=== PATIENT | female | born 1940 | race Asian ===

== ENCOUNTER 2017-03-23 00:56 | Inpatient (IN) | payer MEDICARE, BC ==
[~2017-03-23] VITALS: Ht 160 cm; Wt 51.3 kg
[2017-03-23] VITALS (11 sets, daily range): BP systolic 158–226; BP diastolic 74–105; PULSE 80–101; RESP 16–20; TEMP 95.5–98.7; O2SAT 96–100
[~2017-03-23 00:56] MED LIST: ALEN100T2 PO; AMLO5TAB2 PO; ASPI-110 PO; DICL1GEL7 TOPICAL; DULO1CAP2 PO; GLIP5TAB8 PO; LOSA50TA PO; MELO-1 PO; METF1000 PO; ONETTES4; PANT40TA3 PO; PERI8.6T PO; POLY17S PO; SIMV40TA PO
[2017-03-23] MEDS ORDERED: oxyCODONE/ACETAMINOPHEN 5 MG/325 MG TAB PO ONE (01:45)
[2017-03-23] MEDS ORDERED: SODIUM CHLORIDE 0.9% FLUSH 10 ML FLUSH IV FLUSH PRN ×2 (01:45→04:45)
--- NOTE | 2017-03-23 01:48 | PD ---
HPI Chief Complaint: Pain: Acute or Chronic Time Seen by Provider: 01:33 Travel History International Travel<30 days: No Contact w/Intl Traveler<30days: No Traveled to known affect area: No History of Present Illness HPI The patient speaks Thai and [place] interpreter deaf #[id number] as well as the patient's were used for interpretation for history and physical exam. This is a 76-year-old female with history of hypertension, hyperlipidemia, diabetes, who is here for evaluation of diffuse body pain. The patient describes the pain as achy and is 8 out of 10, constant, worse with movements. Apparently the patient has had this pain for years and is being seen by our residents in our clinic for this pain. I reviewed some of their charts and they have performed tests such as ESR and CRP which are normal. She is supposed to have a follow-up appointment this morning at 9:30 AM, however because she has not been able to sleep over the last 3 nights because of the pain, she decided to present to the emergency department for further evaluation. Apparently the patient was seen in their clinic about a week ago and was prescribed meloxicam, however this causes the patient to become nauseous and had an upset stomach, so she has discontinued this medication. She has been compliant with all of her other medications. PFSH Past Medical History High Cholesterol: Yes Diabetes: Yes Patient Takes Glucophage: Yes Diminished Hearing: No Hypertension: Yes Tetanus Vaccination: Unknown Influenza Vaccination: No Past Surgical History Surgical History: No Previous Surgery Social History Alcohol Use: No Tobacco Use: No Substance Use: No Allergies-Medications (Allergen,Severity, Reaction): Coded Allergies: diclofenac (Verified Allergy, Unknown, 03/23/17) Reported Meds & Prescriptions Reported Meds & Active Scripts Active Alendronate (Alendronate Sodium) 10 Mg Tab 10 Mg PO DAILY Simvastatin 40 Mg Tab 40 Mg PO HS Meloxicam 15 Mg Tab 15 Mg PO DAILY Polyethylene Glycol 3350 Powder (Polyethylene Glycol) 17 Gm Pow 17 Gm PO DAILY Losartan (Losartan Potassium) 50 Mg Tab 50 Mg PO DAILY Amlodipine (Amlodipine Besylate) 5 Mg Tab 5 Mg PO DAILY Cherrie-Colace (Sennosides-Docusate Sodium) 8.6-50 Mg Tab 1 Tab PO BID PRN Metformin (Metformin HCl) 1,000 Mg Tab 1,000 Mg PO BIDPC With meals Pantoprazole (Pantoprazole Sodium) 40 Mg Tab 40 Mg PO DAILY Reported Onetouch Ultra Test Strips (Blood Glucose Test Strips) 1 Lucretia Lucretia 1 Strip .ROUTE DIRECTED Aspirin 81 (Aspirin) 81 Mg Tabdr 81 Mg PO DAILY Review of Systems Except as stated in HPI: all other systems reviewed are Neg Physical Exam Narrative GENERAL: Well-developed, well-nourished, awake, alert, comfortable, no apparent distress. SKIN: Focused skin assessment warm/dry. HEAD: Atraumatic. Normocephalic. EYES: Pupils equal and round. No scleral icterus. No injection or drainage. ENT: No nasal bleeding or discharge. Mucous membranes pink and moist. NECK: Trachea midline. No JVD. No nuchal rigidity. CARDIOVASCULAR: Regular rate and rhythm. Distal pulses brisk and equal bilaterally. RESPIRATORY: No accessory muscle use. Clear to auscultation. Breath sounds equal bilaterally. GASTROINTESTINAL: Abdomen soft, non-tender, nondistended. MUSCULOSKELETAL: No obvious deformities. No clubbing. No cyanosis. No edema. NEUROLOGICAL: Awake and alert. No obvious cranial nerve deficits. Motor grossly within normal limits. Normal speech. PSYCHIATRIC: Appropriate mood and affect; insight and judgment normal. Data Data Last Documented VS Vital Signs Date Time Temp Pulse Resp B/P (MAP) Pulse Ox O2 Delivery O2 Flow Rate FiO2 03/23/17 03:10 87 18 177/90 (119) 99 Room Air 03/23/17 00:57 97.6 Orders Orders Complete Blood Count With Diff (03/23/17 01:33) Comprehensive Metabolic Panel (03/23/17 01:33) Iv Access Insert/Monitor (03/23/17 01:33) Ecg Monitoring (03/23/17 01:33) Oximetry (03/23/17 01:33) Sodium Chloride 0.9% Flush (Ns Flush) (03/23/17 01:45) Electrocardiogram (03/23/17 01:33) Ct Brain W/O Iv Contrast(Rout) (03/23/17 ) Oxycodone-Acetamin 5-325 Mg (Percocet (03/23/17 01:45) Ondansetron Inj (Zofran Inj) (03/23/17 02:15) Sodium Chlor 0.9% 1000 Ml Inj (Ns 1000 M (03/23/17 02:33) Labs Laboratory Tests Test 03/23/17 02:00 White Blood Count 7.6 TH/MM3 Red Blood Count 4.69 MIL/MM3 Hemoglobin 13.8 GM/DL Hematocrit 41.3 % Mean Corpuscular Volume 88.2 FL Mean Corpuscular Hemoglobin 29.5 PG Mean Corpuscular Hemoglobin Concent 33.4 % Red Cell Distribution Width 12.6 % Platelet Count 241 TH/MM3 Mean Platelet Volume 7.8 FL Neutrophils (%) (Auto) 75.5 % Lymphocytes (%) (Auto) 16.8 % Monocytes (%) (Auto) 6.9 % Eosinophils (%) (Auto) 0.5 % Basophils (%) (Auto) 0.3 % Neutrophils # (Auto) 5.7 TH/MM3 Lymphocytes # (Auto) 1.3 TH/MM3 Monocytes # (Auto) 0.5 TH/MM3 Eosinophils # (Auto) 0.0 TH/MM3 Basophils # (Auto) 0.0 TH/MM3 CBC Comment DIFF FINAL Differential Comment Blood Urea Nitrogen 9 MG/DL Creatinine 0.64 MG/DL Random Glucose 209 MG/DL Total Protein 8.3 GM/DL Albumin 4.1 GM/DL Calcium Level 9.2 MG/DL Alkaline Phosphatase 60 U/L Aspartate Amino Transf (AST/SGOT) 22 U/L Alanine Aminotransferase (ALT/SGPT) 27 U/L Total Bilirubin 0.5 MG/DL Sodium Level 116 MEQ/L Potassium Level 4.0 MEQ/L Chloride Level 80 MEQ/L Carbon Dioxide Level 25.0 MEQ/L Anion Gap 11 MEQ/L Estimat Glomerular Filtration Rate 91 ML/MIN [facility] Medical Decision Making Medical Screen Exam Complete: Yes Emergency Medical Condition: Yes Medical Record Reviewed: Yes Differential Diagnosis Chronic pain, osteoarthritis, PMR, meningitis/encephalitis/SAH unlikely, dissection unlikely Narrative Course Initial vital signs show heart rate 97, blood pressure 226/105, pulse ox 96% on room air, oral temp of 97.6F. Repeat vital signs show blood pressure 177/90 without any intervention. CBC is unremarkable. CMP is remarkable for sodium 116, random glucose 209. CT head shows no acute intracranial disease. Patient was started on normal saline at 70 cc per hour and will be admitted for further treatment and evaluation of hypokalemia, chronic pain. Case discussed with biomedical specialist. The patient will be admitted to their service. Diagnosis Primary Impression: Hypokalemia Additional Impression: Chronic pain Qualified Codes: G89.29 - Other chronic pain Admitting Information Admitting Physician Requests: Admit Juan Malagon MD Mar 23, 2017 01:48
[2017-03-23 02:10] LABS: AUTOMATED NEUTROPHIL # 5.7 TH/MM3 (1.8-7.7); BASOPHIL % 0.3 % (0.0-2.0); EOSINOPHIL % 0.5 % (0.0-4.0); HEMATOCRIT 41.3 % (35.0-46.0); HEMO FLAGS DIFF FINAL; LYMPH % 16.8 % (9.0-44.0); LYMPHOCYTE # 1.3 TH/MM3 (1.0-4.8); MEAN CELL VOLUME 88.2 FL (80.0-100.0); MEAN CORPUSCULAR HEMOGLOBIN 29.5 PG (27.0-34.0); MEAN CORPUSCULAR HGB CONC 33.4 % (32.0-36.0); MONO % 6.9 % (0.0-8.0); NEUT % 75.5 % (16.0-70.0); PLATELET COUNT 241 TH/MM3 (150-450); RED BLOOD COUNT 4.69 MIL/MM3 (4.00-5.30); RED CELL DISTRIBUTION WIDTH 12.6 % (11.6-17.2); WHITE BLOOD COUNT 7.6 TH/MM3 (4.0-11.0)
[2017-03-23] MEDS ORDERED: ONDANSETRON HCL 4 MG/2 ML VIAL IV PUSH ONE (02:15)
[2017-03-23 02:30] LABS: ALKALINE PHOSPHATASE 60 U/L (45-117); ALT (GPT) 27 U/L (10-53); ANION GAP 11 MEQ/L (5-15); AST (GOT) 22 U/L (15-37); BLOOD UREA NITROGEN 9 MG/DL (7-18); CHLORIDE 80 MEQ/L (98-107); GLOMERULAR FILTRATION RATE 91 ML/MIN (>89); TOTAL BILIRUBIN ADULT 0.5 MG/DL (0.2-1.0)
[2017-03-23 02:33] LABS: SODIUM (NA) 116 MEQ/L (136-145)
[2017-03-23] MEDS ORDERED: SODIUM CHLOR 0.9% 1000 ML INJ 1,000 ML IV SCH (02:33)
--- NOTE | 2017-03-23 03:06 | RADRPT ---
EXAM DATE/TIME: 03/23/2017 02:34 [facility] COMPARISON: No previous studies available for comparison. INDICATIONS : Cephalgia. RADIATION DOSE: 31.74 CTDIvol (mGy) MEDICAL HISTORY : Hypertension. Diabetes mellitus type 2. SURGICAL HISTORY : None. ENCOUNTER: Initial ACUITY: 1 day PAIN SCALE: 6/10 LOCATION: cranial TECHNIQUE: Multiple contiguous axial images were obtained of the head. Using automated exposure control and adj ustment of the mA and/or kV according to patient size, radiation dose was kept as low as reasonably a chievable to obtain optimal diagnostic quality images. DICOM format image data is available electro nically for review and comparison. FINDINGS: CEREBRUM: The ventricles are normal for age. No evidence of midline shift, mass lesion, hemorrhage or acute in farction. No extra-axial fluid collections are seen. POSTERIOR FOSSA: The cerebellum and brainstem are intact. The 4th ventricle is midline. The cerebellopontine angle i s unremarkable. EXTRACRANIAL: The visualized portion of the orbits is intact. SKULL: The calvaria is intact. No evidence of skull fracture. CONCLUSION: No acute intracranial disease. Rancho Pierre MD on March 23, 2017 at 3:04 Board Certified Radiologist. This report was verified electronically.
--- NOTE | 2017-03-23 04:09 | HHI.HP ---
HPI Service Family Medicine Primary Care Physician Unknown Admission Diagnosis hyponatremia, chronic pain Diagnoses: Chief Complaint: pain International Travel<30 Days: No Contact w/Intl Traveler<30days: No History of Present Illness Ms. Richter is a 76 y/o [place] female with history of diabetes, hypertension , hyponatremia, chronic pain who presents due to pain. She initially presented to the ED due to chronic pain that has worsened lately. She has had the pain for years and has been evaluated in the [facility]. She recently had workup for possible inflammatory condition, which was negative, including ESR, RF, and CRP. Pt was found to have osteoporosis. She also states that she had some nausea and vomiting after starting Mobic, which was prescribed. Also having difficulty sleeping lately as well. Complains of headache, bilateral pain. Has had off and on for a week. No photophobia or auras. The , who provides some of the history, states she does have occasional confusion lately, but is oriented today. No history of seizures. Has a history of hyponatremia in the past, they are unsure of the etiology. Denies drinking lots of water. No syncope. No ataxia. Pt is fully independent at baseline, but worsening fatigue lately has hindered her activities. (Sampson Geiger MD, R2) Review of Systems Constitutional: COMPLAINS OF: Chills, DENIES: Fever Eyes: DENIES: Blurred vision Ears, nose, mouth, throat: DENIES: Throat pain, Hoarseness, Running Nose Respiratory: DENIES: Cough, Shortness of breath Cardiovascular: DENIES: Chest pain, Palpitations, Syncope, Lower Extremity Edema Gastrointestinal: COMPLAINS OF: Nausea, Vomiting, DENIES: Abdominal pain, Black stools, Bloody stools, Constipation, Diarrhea Musculoskeletal: COMPLAINS OF: Joint pain, Muscle aches, Stiffness, Back pain, Neck pain Integumentary: DENIES: Abnormal pigmentation, Rash Neurologic: COMPLAINS OF: Headache, DENIES: Seizures, Speech Problems, Tremor ( Sampson Geiger MD, R2) Past Family Social History Past Medical History T2DM HTN Hyponatremia Depression Dyslipidemia Diverticulosis Vitamin D deficiency Past Surgical History Cataract OU in 2009 Endoscopy-July 2014 Reported Medications Reported Meds & Active Scripts Active Alendronate (Alendronate Sodium) 10 Mg Tab 10 Mg PO DAILY Simvastatin 40 Mg Tab 40 Mg PO HS Meloxicam 15 Mg Tab 15 Mg PO DAILY Polyethylene Glycol 3350 Powder (Polyethylene Glycol) 17 Gm Pow 17 Gm PO DAILY Losartan (Losartan Potassium) 50 Mg Tab 50 Mg PO DAILY Amlodipine (Amlodipine Besylate) 5 Mg Tab 5 Mg PO DAILY Cherrie-Colace (Sennosides-Docusate Sodium) 8.6-50 Mg Tab 1 Tab PO BID PRN Metformin (Metformin HCl) 1,000 Mg Tab 1,000 Mg PO BIDPC With meals Pantoprazole (Pantoprazole Sodium) 40 Mg Tab 40 Mg PO DAILY Reported Onetouch Ultra Test Strips (Blood Glucose Test Strips) 1 Lucretia Lucretia 1 Strip .ROUTE DIRECTED Aspirin 81 (Aspirin) 81 Mg Tabdr 81 Mg PO DAILY (aSmpson Geiger MD, R2) Allergies: Coded Allergies: diclofenac (Verified Allergy, Unknown, 03/23/17) Active Ordered Medications Active Medications Ondansetron HCl (Zofran Inj) 4 mg ONCE ONCE IV PUSH Last administered on 02:14; Admin Dose 4 MG; Start 03/23/17 at 02:15; Stop 03/23/17 at 02:16; Status DC Oxycodone/ Acetaminophen (Percocet 5-325 Mg) 1 tab ONCE ONCE PO Last administered on 03/23/17 01:43; Admin Dose 1 TAB; Start 03/23/17 at 01:45; Stop 03/23/17 at 01:46; Status DC Sodium Chloride 1,000 ml @ 70 mls/hr [id number] IV Last administered on 02:35; Admin Dose 70 MLS/HR; Start 03/23/17 at 02:33; Stop 03/23/17 at 16 :50 Sodium Chloride (NS Flush) 2 ml UNSCH PRN IV FLUSH Last administered on 02:14; Admin Dose 2 ML; Start 03/23/17 at 01:45 Family History Unknown Social History She is retired. Lives with her in [facility]. Recently moved from [facility]. Never smoked. Denies EtOH or illicit drug use. Fluent in Chadian. Nepali is limited. (Sampson Geiger MD, R2) Physical Exam Vital Signs Vital Signs Date Time Temp Pulse Resp B/P (MAP) Pulse Ox O2 Delivery O2 Flow Rate FiO2 10/23/17 03:10 87 18 177/90 (119) 99 Room Air 03/23/17 02:23 16 99 Room Air 03/23/17 01:33 16 03/23/17 00:57 97.6 97 16 226/105 (145) 96 Room Air Physical Exam GENERAL: This is a well-nourished, well-developed patient, in no apparent distress. SKIN: No rashes, ecchymoses or lesions. Cool and dry. HEAD: Atraumatic. Normocephalic. EYES: Pupils equal round and reactive. Extraocular motions intact. No scleral icterus. No injection or drainage. ENT: Throat without erythema, tonsillar hypertrophy or exudate. Uvula midline. Airway patent. NECK: Trachea midline. No JVD or lymphadenopathy. CARDIOVASCULAR: Regular rate and rhythm without murmurs, gallops, or rubs. RESPIRATORY: Clear to auscultation. Breath sounds equal bilaterally. No wheezes , rales, or rhonchi. GASTROINTESTINAL: Abdomen soft, non-tender, nondistended. No hepato-splenomegaly , or palpable masses. No guarding. MUSCULOSKELETAL: Extremities without clubbing, cyanosis, or edema. Tender to palpation of shoulders and knees. NEUROLOGICAL: Awake and alert. Cranial nerves II through XII intact. Motor and sensory grossly within normal limits. Five out of 5 muscle strength in all muscle groups. Normal speech. Laboratory Laboratory Tests Test 03/23/17 02:00 White Blood Count 7.6 Red Blood Count 4.69 Hemoglobin 13.8 Hematocrit 41.3 Mean Corpuscular Volume 88.2 Mean Corpuscular Hemoglobin 29.5 Mean Corpuscular Hemoglobin Concent 33.4 Red Cell Distribution Width 12.6 Platelet Count 241 Mean Platelet Volume 7.8 Neutrophils (%) (Auto) 75.5 Lymphocytes (%) (Auto) 16.8 Monocytes (%) (Auto) 6.9 Eosinophils (%) (Auto) 0.5 Basophils (%) (Auto) 0.3 Neutrophils # (Auto) 5.7 Lymphocytes # (Auto) 1.3 Monocytes # (Auto) 0.5 Eosinophils # (Auto) 0.0 Basophils # (Auto) 0.0 CBC Comment DIFF FINAL Differential Comment Blood Urea Nitrogen 9 Creatinine 0.64 Random Glucose 209 Total Protein 8.3 Albumin 4.1 Calcium Level 9.2 Alkaline Phosphatase 60 Aspartate Amino Transf (AST/SGOT) 22 Alanine Aminotransferase (ALT/SGPT) 27 Total Bilirubin 0.5 Sodium Level 116 Potassium Level 4.0 Chloride Level 80 Carbon Dioxide Level 25.0 Anion Gap 11 Estimat Glomerular Filtration Rate 91 (Sampson Geiger MD, R2) Result Diagram: 03/23/17 0200 03/23/17 0200 Imaging Last Impressions Head CT 03/23/17 0000 Signed Impressions: Service Date/Time: Thursday, March 23, 2017 02:34 - CONCLUSION: No acute intracranial disease. Rancho Pierre MD (Sampson Geiger MD, R2) Caprini VTE Risk Assessment Caprini VTE Risk Assessment: Mod/High Risk (score >= 2) Caprini Risk Assessment Model Point Value = 1 Point Value = 2 Point Value = 3 Point Value = 5 Age 41-60 Minor surgery BMI > 25 kg/m2 Swollen legs Varicose veins or History of unexplained or recurrent spontaneous Oral contraceptives or hormone replacement Sepsis (< 1 month) Serious lung disease, including pneumonia (< 1 month) Abnormal pulmonary function Acute myocardial infarction Congestive heart failure (< 1 month) History of inflammatory bowel disease Medical patient at bed rest Age 61-74 Arthroscopic surgery Major open surgery (> 45 min) Laparoscopic surgery (> 45 min) Malignancy Confined to bed (> 72 hours) Immobilizing plaster cast Central venous access Age >= 75 History of VTE Family history of VTE Factor V Leiden Prothrombin [id number] Lupus anticoagulant Anticardiolipin antibodies Elevated serum homocysteine Heparin-induced thrombocytopenia Other congenital or acquired thrombophilia Stroke (< 1 month) Elective arthroplasty Hip, pelvis, or leg fracture Acute spinal cord injury (< 1 month) Prophylaxis Regimen Total Risk Factor Score Risk Level Prophylaxis Regimen 0-1 Low Early ambulation 2 Moderate Order ONE of the following: *Sequential Compression Device (SCD) *Heparin 5000 units SQ BID 3-4 Higher Order ONE of the following medications: *Heparin 5000 units SQ TID *Enoxaparin/Lovenox 40 mg SQ daily (WT < 150 kg, CrCl > 30 mL/min) *Enoxaparin/Lovenox 30 mg SQ daily (WT < 150 kg, CrCl > 10-29 mL/min) *Enoxaparin/Lovenox 30 mg SQ BID (WT < 150 kg, CrCl > 30 mL/min) AND/OR *Sequential Compression Device (SCD) 5 or more Highest Order ONE of the following medications: *Heparin 5000 units SQ TID (Preferred with Epidurals) *Enoxaparin/Lovenox 40 mg SQ daily (WT < 150 kg, CrCl > 30 mL/min) *Enoxaparin/Lovenox 30 mg SQ daily (WT < 150 kg, CrCl > 10-29 mL/min) *Enoxaparin/Lovenox 30 mg SQ BID (WT < 150 kg, CrCl > 30 mL/min) AND *Sequential Compression Device (SCD) (Sampson Geiger MD, R2) Assessment and Plan Assessment and Plan 76 y/o female with history of diabetes, hypertension, chronic pain, hyponatremia presents for chronic pain/fatigue found to have hyponatremia. We' ll admit for management of electrolyte imbalance. Code Status Full Discussed Condition With Dr. Pastrana (Sampson Geiger MD, R2) Attending Attestation THIS CASE WAS DISCUSSED WITH THE RESIDENT PHYSICIANS. I HAVE REVIEWED THE RECORD AND AGREE WITH THE ABOVE NOTE AND PLAN OF CARE WAS DISCUSSED. I HAVE AUTHORIZED THE ORDER FOR ADMISSION TO AN IN-PATIENT STATUS. (Abbie Denson MD) Problem List: (1) Hyponatremia ICD Codes: E87.1 - Hypo-osmolality and hyponatremia Status: Acute Plan: Sodium of 116 on admission. Clinically with mild symptoms (headache, nausea). No signs of confusion, seizures, respiratory depression. Has history of hyponatremia, so may be a more chronic picture. Serum Osm: 247; clinically, pt is euvolemic with stable vital signs, mucous membranes, no edema; however, may be slightly hypovolemic due to GI losses Goal is to raise sodium by 4-6meq/24h to reduce risk for osmotic demyelination -Serial BMPs q3H -Fluid restriction, may attempt trial of IV fluids if no improvement -UA, including urinary sodium and osmolality -Monitor for neurological signs or worsening clinically (2) HTN (hypertension) ICD Codes: I10 - Essential (primary) hypertension Status: Chronic Plan: 226/105 on arrival, trended down to 177/90 without any intervention -Continue home meds: amlodipine, losartan -Clonidine PRN -Regular vital signs (3) Diabetes ICD Codes: E11.9 - Type 2 diabetes mellitus without complications Status: Chronic Plan: Hold home Metformin while inpatient -Low dose sliding scale novolog insulin -Regular accuchecks (4) Chronic pain ICD Codes: G89.29 - Other chronic pain Status: Chronic Plan: Pt with chronic joint pain. Found to have osteoporosis, but no other etiology. Pt with GI upset after taking NSAIDs Inflammatory workup initiated, negative -Continue alendronate -IV tylenol for pain -Physical therapy -Further workup as outpatient (5) FEN Status: Acute Plan: Fluids: Restrict Electrolytes: hyponatremia, see above Nutrition: diabetic diet DVT ppx: Heparin (Sampson Geiger MD, R2) Physician Certification 2 Midnight Certification Type: Admission for Inpatient Services Order for Inpatient Services The services are ordered in accordance with Medicare regulations or non- Medicare payer requirements, as applicable. In the case of services not specified as inpatient-only, they are appropriately provided as inpatient services in accordance with the 2-midnight benchmark. Estimated LOS (days): 2 days is the estimated time the patient will need to remain in the hospital, assuming treatment plan goals are met and no additional complications. Post-Hospital Plan: Home (Sampson Geiger MD, R2) 2 Midnight Certification Type: Admission for Inpatient Services Post-Hospital Plan: Home (Abbie Denson MD) Problem Qualifiers (1) HTN (hypertension): Qualified Codes: I10 - Essential (primary) hypertension (2) Diabetes: Qualified Codes: E11.9 - Type 2 diabetes mellitus without complications (3) Chronic pain: Qualified Codes: G89.29 - Other chronic pain Sampson Geiger MD, R2 Mar 23, 2017 04:09 Abbie Denson MD Mar 23, 2017 15:44
[2017-03-23] MEDS ORDERED: MAGNESIUM HYDROXIDE SUSP 30 ML CUP PO PRN (04:45)
[2017-03-23] MEDS ORDERED: GLUCAGON 1 MG/ML VIAL OTHER PRN (04:45)
[2017-03-23] MEDS ORDERED: DEXTROSE 50% IN WATER 50 ML VIAL(D50) IV PUSH PRN (04:45)
[2017-03-23] MEDS ORDERED: LACTULOSE SYRUP 20 GM/30 ML CUP PO PRN (04:45)
[2017-03-23] MEDS ORDERED: NALOXONE HCL 0.4 MG/ML AMP IV PUSH PRN (04:45)
[2017-03-23] MEDS ORDERED: cloNIDine HCL 0.1 MG TAB PO PRN (04:45)
[2017-03-23] MEDS ORDERED: ACETAMINOPHEN 325 MG TAB PO PRN (04:45)
[2017-03-23] MEDS ORDERED: BISACODYL 10 MG SUPP RECTAL PRN (04:45)
[2017-03-23] MEDS ORDERED: SENNOSIDES 8.6 MG TAB PO PRN (04:45)
[2017-03-23 05:51] LABS: BICARBONATE 25.6 MEQ/L (21.0-32.0)
[2017-03-23 05:52] LABS: POTASSIUM 4.7 MEQ/L (3.5-5.1)
[2017-03-23] MEDS: HEPARIN SODIUM - SQ 10,000 UNITS/ML VIAL SQ SCH ×2 (07:00→17:38)
[2017-03-23] MEDS ORDERED: ACETAMINOPHEN 1000 MG/100 ML 100 ML IV PRN (07:00)
[2017-03-23] MEDS ORDERED: ALENDRONATE SODIUM 10 MG TAB PO SCH (09:00)
[2017-03-23] MEDS: PANTOPRAZOLE SOD 40 MG DELAYED RELEASE TAB PO SCH (09:01)
[2017-03-23] MEDS: ASPIRIN EC 81 MG TABEC PO SCH (09:01)
[2017-03-23] MEDS: amLODIPine BESYLATE 5 MG TAB PO SCH (09:01)
[2017-03-23] MEDS: LOSARTAN 50 MG TAB PO SCH (09:01)
[2017-03-23] MEDS: DOCUSATE SODIUM 50 MG/SENNA 8.6 MG TAB PO SCH ×2 (09:01→22:11)
[2017-03-23] MEDS: INSULIN ASPART SUPPLEMENTAL SCALE SQ SCH ×4 (09:02→22:28)
[2017-03-23] MEDS: SODIUM CHLORIDE 0.9% FLUSH 10 ML FLUSH IV FLUSH SCH ×2 (09:03→19:49)
--- NOTE | 2017-03-23 09:26 | HHI.FPPN ---
Subjective Remarks No acute events overnight. [employer] computer used this morning to provide [place]oan translation for the patient. Patient endorses fatigue and a mild headache. She states she has felt fatigued over the past 3 days and this worsened overnight which prompted her to be evaluated in the ED. She denies confusion, tremors, or being anxious. She states she normally only drinks about 2 bottles of water a day which is confirmed by her . The bottles are about 8 ounces each. She reports good UOP, no excessive urination, dysuria, or hematuria. She denies having a history of renal conditions. She and her family states she has had hyponatremia in the past. She was seen in clinic this past and started on duloxetine 30 mg po daily and family has questions as to if this has caused some of her symptoms. (Jerod Gudino MD R2) Objective Vitals Vital Signs Date Time Temp Pulse Resp B/P (MAP) Pulse Ox O2 Delivery O2 Flow Rate FiO2 03/23/17 08:00 98 03/23/17 06:00 97 03/23/17 05:10 21 03/23/17 04:58 03/23/17 03:10 87 18 177/90 (119) 99 Room Air 03/23/17 02:23 16 99 Room Air 03/23/17 01:33 16 03/23/17 00:57 97.6 97 16 226/105 (145) 96 Room Air I/O 03/22/17 03/22/17 03/22/17 03/23/17 03/23/17 03/23/17 07:00 15:00 23:00 07:00 15:00 23:00 Intake Total 100 ml Output Total 100 ml Balance 0 ml Intake IV Total 100 ml Output Emesis 100 ml (Jerod Gudino MD R2) Result Diagram: 03/23/17 0200 03/23/17 0515 Objective Remarks GENERAL: Awake and alert but does appear fatigued, pleasant, appears stated age SKIN: No rashes, ecchymoses or lesions. Cool and dry. Normal skin turgor. HEAD: Atraumatic. Normocephalic. EYES: EOMI. No injection or drainage. ENT: Moist mucous membranes. Uvula midline. Airway patent. NECK: Supple. Trachea midline. No JVD. CARDIOVASCULAR: Regular rate and rhythm without murmurs, gallops, or rubs. Cap refill about 2 seconds. RESPIRATORY: Clear to auscultation. Breath sounds equal bilaterally. No wheezes , rales, or rhonchi. ABDOMEN: Abdomen soft, non-tender, nondistended. No hepato-splenomegaly, or palpable masses. No guarding. EXTREMITIES: No lower extremity edema. NEUROLOGICAL: Awake and alert. Cranial nerves grossly intact. Motor and sensory grossly within normal limits. Normal speech (speaks in Samoan). (Jerod Gudino MD R2) A/P Assessment and Plan 76 y/o female with history of diabetes, hypertension, chronic pain, and hyponatremia admitted after presenting with chronic pain/fatigue and found to have hyponatremia of 116 on admission. Discharge Planning Anticipate discharge home once electrolyte imbalances are resolved (Jerod Gudino MD R2) Attending Attestation Patient seen and examined. Case reviewed and discussed with the resident team. Agree with plan of care as discussed with me and documented in the resident note. (Abbie Denson MD) Problem List: (1) Hyponatremia ICD Codes: E87.1 - Hypo-osmolality and hyponatremia Status: Acute Plan: Sodium of 116 on admission. Clinically with mild symptoms (headache, nausea, fatigue). No signs of confusion, seizures, respiratory depression. Has history of hyponatremia, so may be a more of a chronic picture. Serum Osm on admission: 247 Clinically, pt remains euvolemic with stable vital signs, moist mucous membranes , normal skin turgor, 2 second cap refill, no edema; however, may be slightly hypovolemic due to GI losses Goal is to raise sodium by 4-6meq/24h to reduce risk for osmotic demyelination and no more than 8meq in a 24 hour period -Continue serial BMPs q3h, consider more frequent evaluation q2h pending changes in Na level -Continue fluid restriction for now, if no improvement in Na with fluid restriction then patient likely not having psychogenic polydipsia and will transition to IVF with NS -UA, including urinary sodium and osmolality. Called laboratory and lab still has not received urine specimen. RN notified to send urine specimen down to lab to run these studies -Monitor for neurological signs or worsening clinically (2) HTN (hypertension) ICD Codes: I10 - Essential (primary) hypertension Status: Chronic Plan: 226/105 on arrival, trended down to 177/90 without any intervention -Continue home meds: amlodipine, losartan -Clonidine PRN -Monitor vitals q4h (3) Diabetes ICD Codes: E11.9 - Type 2 diabetes mellitus without complications Status: Chronic Plan: Hold home Metformin while inpatient -Low dose sliding scale novolog insulin -Regular accuchecks (4) Chronic pain ICD Codes: G89.29 - Other chronic pain Status: Chronic Plan: Pt with chronic joint pain. Found to have osteoporosis, but no other etiology. Pt with GI upset after taking NSAIDs Inflammatory workup initiated, negative -Continue alendronate -PO Tylenol prn pain -Physical therapy (5) FEN Status: Acute Plan: Fluids: Currently on fluid restriction as above, considering starting IVF with NS pending repeat Na level Electrolytes: hyponatremia, plan as above Nutrition: diabetic diet DVT ppx: Heparin 5,000 units sq q12h GI ppx: Protonix 40 mg po daily (Jerod Gudino MD R2) Problem Qualifiers (1) HTN (hypertension): Qualified Codes: I10 - Essential (primary) hypertension (2) Diabetes: Qualified Codes: E11.9 - Type 2 diabetes mellitus without complications (3) Chronic pain: Qualified Codes: G89.29 - Other chronic pain Jerod Gudino MD R2 Mar 23, 2017 09:26 Abbie Denson MD Mar 23, 2017 15:48
[2017-03-23 09:44] LABS: BICARBONATE 23.1 MEQ/L (21.0-32.0)
[2017-03-23 09:51] LABS: POTASSIUM 4.7 MEQ/L (3.5-5.1)
--- NOTE | 2017-03-23 10:40 | EKG ---
Date Performed: 03/23/2017 Time Performed: 02:19:56 PTAGE: 76 years EKG: Sinus rhythm NORMAL ECG NO PREVIOUS TRACING DOCTOR: David Becerra Interpretating Date/Time 03/23/2017 10:37:44
[2017-03-23 14:27] LABS: POTASSIUM 3.9 MEQ/L (3.5-5.1)
[2017-03-23 16:15] LABS: BICARBONATE 27.9 MEQ/L (21.0-32.0); POTASSIUM 3.9 MEQ/L (3.5-5.1)
[2017-03-23 17:05] LABS: BACTERIA, URINE RARE /hpf; BLOOD, URINE SMALL (NEG); COMMENT (UR) CULT NOT INDICATED; CULTURE IF INDICATED CULT NOT INDICATED; GLUCOSE,URINE 1000 mg/dL (NEG); KETONE, URINE NEG (NEG); NITRITE,URINE NEG (NEG); SQUAMOUS EPITHELIAL CELL URINE <1 /hpf (0-5); URINE COLOR LIGHT-YELLOW (YELLW/STRAW)
[2017-03-23 19:27] LABS: BICARBONATE 27.2 MEQ/L (21.0-32.0); POTASSIUM 3.6 MEQ/L (3.5-5.1)
[2017-03-23] MEDS: ONDANSETRON HCL 4 MG/2 ML VIAL IVP PRN (19:49)
[2017-03-23] MEDS ORDERED: PRAVASTATIN SOD 80 MG TAB PO SCH (21:00)
[2017-03-23 23:06] LABS: BICARBONATE 26.5 MEQ/L (21.0-32.0); POTASSIUM 4.2 MEQ/L (3.5-5.1)
[2017-03-24] VITALS: BP 136/79; PULSE 78; RESP 19; TEMP 97.9; O2SAT 98
[2017-03-24] MEDS ORDERED: SODIUM CHLORIDE 1 GRAM TAB PO ONE
[2017-03-24] MEDS: ACETAMINOPHEN 325 MG TAB PO PRN ×2 (01:34→21:59)
[2017-03-24] MEDS: ONDANSETRON HCL 4 MG/2 ML VIAL IVP PRN (03:05)
[2017-03-24 03:16] LABS: BICARBONATE 28.6 MEQ/L (21.0-32.0); POTASSIUM 3.5 MEQ/L (3.5-5.1)
[2017-03-24 04:00] VITALS: BP 142/82; PULSE 72; RESP 18; TEMP 97.4; O2SAT 95
[2017-03-24] MEDS: HEPARIN SODIUM - SQ 10,000 UNITS/ML VIAL SQ SCH ×2 (05:25→18:02)
[2017-03-24 08:00] VITALS: BP 108/55; PULSE 85; RESP 18; TEMP 98.8; O2SAT 97
[2017-03-24] MEDS: INSULIN ASPART SUPPLEMENTAL SCALE SQ SCH ×4 (08:00→22:01)
[2017-03-24] MEDS: amLODIPine BESYLATE 5 MG TAB PO SCH (09:30)
[2017-03-24] MEDS: ASPIRIN EC 81 MG TABEC PO SCH (09:30)
[2017-03-24] MEDS: PANTOPRAZOLE SOD 40 MG DELAYED RELEASE TAB PO SCH (09:30)
[2017-03-24] MEDS: LOSARTAN 50 MG TAB PO SCH (09:31)
[2017-03-24] MEDS: DOCUSATE SODIUM 50 MG/SENNA 8.6 MG TAB PO SCH ×2 (09:31→21:00)
[2017-03-24] MEDS: SODIUM CHLORIDE 0.9% FLUSH 10 ML FLUSH IV FLUSH SCH ×2 (09:33→22:01)
[2017-03-24 10:33] LABS: BICARBONATE 23.7 MEQ/L (21.0-32.0); FREE T4 1.6 NG/DL (0.76-1.46); POTASSIUM 3.6 MEQ/L (3.5-5.1)
[2017-03-24] MEDS ORDERED: DOCUSATE SODIUM 50 MG/SENNA 8.6 MG TAB PO SCH (11:45)
[2017-03-24 12:00] VITALS: BP 139/71; PULSE 71; RESP 18; TEMP 97.6; O2SAT 99
--- NOTE | 2017-03-24 15:22 | HHI.FPPN ---
Subjective Remarks Patient states that she is feeling much better than when she came in. States that she is able to eat and is walking around. Endorses continued headache and neck and shoulder pain/aches. Vitals within normal limits overnight. Intake/ output of 1.0/1.4. Received salt tablet x1. Sodium improved from 114 last night to 121 today. (Yuli Oliva MD R1) Objective Vitals Vital Signs Date Time Temp Pulse Resp B/P (MAP) Pulse Ox O2 Delivery O2 Flow Rate FiO2 03/24/17 12:00 97.6 71 18 139/71 (93) 99 03/24/17 08:00 98.8 85 18 108/55 (72) 97 03/24/17 07:50 Room Air 03/24/17 04:00 97.4 72 18 142/82 (102) 95 03/24/17 00:00 Room Air 03/24/17 00:00 97.9 78 19 136/79 (98) 98 03/23/17 20:20 83 03/23/17 19:55 158/74 (102) 03/23/17 19:37 98.2 80 18 172/89 (116) 100 03/23/17 19:37 Room Air 03/23/17 16:05 98.7 93 20 198/91 (126) 98 I/O 03/23/17 03/23/17 03/23/17 03/24/17 03/24/17 03/24/17 07:00 15:00 23:00 07:00 15:00 23:00 Intake Total 100 ml 240 ml 785 ml Output Total 100 ml 1350 ml Balance 0 ml 240 ml -565 ml Intake Oral 240 ml 785 ml IV Total 100 ml Output Urine Total 1350 ml Emesis 100 ml # Voids 2 # Bowel Movements 1 0 (Yuli Oliva MD R1) Result Diagram: 03/23/17 0200 03/24/17 0513 Objective Remarks GENERAL: Awake and alert but does appear fatigued, pleasant, appears stated age SKIN: Cool and dry. Normal skin turgor. HEAD: Atraumatic. Normocephalic. EYES: EOMI. No injection or drainage. ENT: Moist mucous membranes. Uvula midline. Airway patent. NECK: Supple. Trachea midline. No JVD. CARDIOVASCULAR: Regular rate and rhythm without murmurs, gallops, or rubs. RESPIRATORY: Clear to auscultation. Breath sounds equal bilaterally. No wheezes , rales, or rhonchi. ABDOMEN: Abdomen soft, non-tender, nondistended. No hepato-splenomegaly, or palpable masses. No guarding. EXTREMITIES: No lower extremity edema. NEUROLOGICAL: Awake and alert. Cranial nerves grossly intact. Motor and sensory grossly within normal limits. Normal speech (speaks in Tristanian). (Yuli Oliva MD R1) A/P Assessment and Plan 76 y/o female with history of diabetes, hypertension, chronic pain, and hyponatremia admitted after presenting with chronic pain/fatigue and found to have hyponatremia of 116 on admission. Work-up significant for SIADH likely secondary to medication use (duloxetine). Patient has been placed on fluid restriction to < 800 cc/day. Sodium levels have improved to 121 in the last 15 hours. Discharge Planning Anticipate discharge home once electrolyte imbalances are resolved (Yuli Oliva MD R1) Attending Attestation Patient seen and examined. Case reviewed and discussed with the resident team. Agree with plan of care as discussed with me and documented in the resident note. (Abbie Denson MD) Problem List: (1) Hyponatremia ICD Codes: E87.1 - Hypo-osmolality and hyponatremia Status: Acute Plan: Sodium of 116 on admission. Clinically with mild symptoms (headache, nausea, fatigue). No signs of confusion, seizures, respiratory depression. Has history of hyponatremia (this is the 3rd episode in 2 years triggered by medication), so may be a more of a chronic picture. Serum Osm on admission: 247 (L) Urine osm: 528 (H) Urine sodium : 54 Clinically, pt remains euvolemic with stable vital signs, moist mucous membranes , normal skin turgor, 2 second cap refill, no edema Thyroid disease and adrenal insufficiency etiology ruled out w/ normal TSH and AM cortisol Meets criteria for SIADH. D/C'd duloxetine, as this medication can contribute Goal is to raise sodium by 4-6meq/24h to reduce risk for osmotic demyelination and no more than 8meq in a 24 hour period -Continue to monitor with serial BMPs q6h, consider more frequent evaluation q3h pending changes in Na level -Continue fluid restriction for now -Monitor for neurological signs or worsening clinically (2) HTN (hypertension) ICD Codes: I10 - Essential (primary) hypertension Status: Chronic Plan: 226/105 on arrival, trended down to 177/90 without any intervention -Continue home meds: amlodipine, losartan -Clonidine PRN -Monitor vitals q4h (3) Diabetes ICD Codes: E11.9 - Type 2 diabetes mellitus without complications Status: Chronic Plan: Hold home Metformin while inpatient -Low dose sliding scale novolog insulin -Regular accuchecks (4) Chronic pain ICD Codes: G89.29 - Other chronic pain Status: Chronic Plan: Pt with chronic joint pain. Found to have osteoporosis, but no other etiology. Pt with GI upset after taking NSAIDs Inflammatory workup initiated, negative -Continue alendronate -PO Tylenol prn pain -Physical therapy (5) FEN Status: Acute Plan: Fluids: Currently on fluid restriction as above, considering starting IVF with NS pending repeat Na level Electrolytes: hyponatremia, plan as above Nutrition: diabetic diet DVT ppx: Heparin 5,000 units sq q12h GI ppx: Protonix 40 mg po daily (Yuli Oliva MD R1) Problem Qualifiers (1) HTN (hypertension): Qualified Codes: I10 - Essential (primary) hypertension (2) Diabetes: Qualified Codes: E11.9 - Type 2 diabetes mellitus without complications (3) Chronic pain: Qualified Codes: G89.29 - Other chronic pain Yuli Oliva MD R1 Mar 24, 2017 15:22 Abbie Denson MD Mar 25, 2017 08:39
[2017-03-24 16:00] VITALS: BP 133/74; PULSE 78; RESP 18; TEMP 98.3; O2SAT 99
[2017-03-24 20:00] VITALS: BP 134/67; PULSE 76; PULSE 81; RESP 20; TEMP 98.3; O2SAT 96
[2017-03-24 21:36] LABS: BICARBONATE 25.2 MEQ/L (21.0-32.0); POTASSIUM 3.7 MEQ/L (3.5-5.1)
[2017-03-25] VITALS (7 sets, daily range): BP systolic 94–159; BP diastolic 57–75; PULSE 70–85; RESP 20; TEMP 98.1–98.3; O2SAT 97–99
[2017-03-25 04:37] LABS: BICARBONATE 26.3 MEQ/L (21.0-32.0); POTASSIUM 3.7 MEQ/L (3.5-5.1)
[2017-03-25] MEDS: HEPARIN SODIUM - SQ 10,000 UNITS/ML VIAL SQ SCH ×2 (05:49→17:36)
[2017-03-25] MEDS: SODIUM CHLORIDE 0.9% FLUSH 10 ML FLUSH IV FLUSH SCH ×2 (07:25→21:38)
[2017-03-25] MEDS: DOCUSATE SODIUM 50 MG/SENNA 8.6 MG TAB PO SCH ×2 (08:44→21:00)
[2017-03-25] MEDS: ASPIRIN EC 81 MG TABEC PO SCH (08:45)
[2017-03-25] MEDS: PANTOPRAZOLE SOD 40 MG DELAYED RELEASE TAB PO SCH (08:45)
[2017-03-25] MEDS: amLODIPine BESYLATE 5 MG TAB PO SCH ×2 (08:45→08:48)
[2017-03-25] MEDS: LOSARTAN 50 MG TAB PO SCH ×2 (08:45→08:48)
[2017-03-25] MEDS: INSULIN ASPART SUPPLEMENTAL SCALE SQ SCH ×4 (08:46→21:39)
[2017-03-25 08:57] LABS: ALKALINE PHOSPHATASE 49 U/L (45-117); ALT (GPT) 24 U/L (10-53); ANION GAP 7 MEQ/L (5-15); AST (GOT) 21 U/L (15-37); BICARBONATE 25.1 MEQ/L (21.0-32.0); BLOOD UREA NITROGEN 18 MG/DL (7-18); CHLORIDE 96 MEQ/L (98-107); GLOMERULAR FILTRATION RATE 78 ML/MIN (>89); POTASSIUM 3.7 MEQ/L (3.5-5.1); SODIUM (NA) 128 MEQ/L (136-145); TOTAL BILIRUBIN ADULT 0.5 MG/DL (0.2-1.0)
[2017-03-25] MEDS: ACETAMINOPHEN 325 MG TAB PO PRN ×2 (09:35→21:40)
--- NOTE | 2017-03-25 09:59 | HHI.FPPN ---
Subjective Remarks No acute events overnight. [employer] computer used for [place] translation this morning. Patient states overall her fatigue and nausea have improved. She has complaints that her pain is still present. She states this pain has been present for about the past 4-5 years and is unchanged in nature. She denies any weakness, numbness, or tingling of any extremity. She also has complaints of thinking she may have yellow conjunctiva. She also has questions as to the cause of her hyponatremia. It was explained at length the potential causes as well as treatment and need for follow up as an outpatient once she is medically stable for discharge. (Jerod Gudino MD R2) Objective Vitals Vital Signs Date Time Temp Pulse Resp B/P (MAP) Pulse Ox O2 Delivery O2 Flow Rate FiO2 03/25/17 08:00 98.1 84 20 94/57 (69) 98 03/25/17 00:00 98.1 70 20 122/60 (80) 97 03/24/17 20:00 98.3 76 20 134/67 (89) 96 03/24/17 20:00 81 03/24/17 20:00 Room Air 03/24/17 16:00 98.3 78 18 133/74 (93) 99 03/24/17 12:00 97.6 71 18 139/71 (93) 99 I/O 03/24/17 03/24/17 03/24/17 03/25/17 03/25/17 03/25/17 07:00 15:00 23:00 07:00 15:00 23:00 Intake Total 785 ml 420 ml 240 ml Output Total 1350 ml 1200 ml Balance -565 ml -780 ml 240 ml Intake Oral 785 ml 420 ml 240 ml Output Urine Total 1350 ml 1200 ml # Voids 3 # Bowel Movements 0 1 (Jerod Gudino MD R2) Result Diagram: 03/23/17 0200 03/25/17 0652 Objective Remarks GENERAL: Awake and alert, pleasant, appears stated age, sitting in chair, appears less fatigued than prior examination SKIN: Cool and dry. Normal skin turgor. HEAD: Atraumatic. Normocephalic. EYES: EOMI. No injection or drainage. ENT: Moist mucous membranes. Uvula midline. Airway patent. NECK: Supple. Trachea midline. No JVD. CARDIOVASCULAR: Regular rate and rhythm without murmurs, gallops, or rubs. Cap refill < 2 seconds. Peripheral pulses 2+. RESPIRATORY: Clear to auscultation. Breath sounds equal bilaterally. No wheezes , rales, or rhonchi. ABDOMEN: Abdomen soft, non-tender, nondistended. No hepato-splenomegaly, or palpable masses. No guarding. EXTREMITIES: No lower extremity edema. NEUROLOGICAL: Awake and alert. Cranial nerves grossly intact. Motor and sensory grossly within normal limits. Normal speech (speaks in [place]). (Jerod Gudino MD R2) A/P Assessment and Plan 76 y/o female with a history of diabetes, hypertension, chronic pain, and hyponatremia admitted after presenting with chronic pain/fatigue and found to have hyponatremia of 116 on admission. Work-up significant for SIADH likely secondary to medication use (duloxetine). Discharge Planning Anticipate discharge home following resolution of electrolyte imbalances (Jerod Gudino MD R2) Attending Attestation Patient seen and examined. Case reviewed and discussed with the resident team. Agree with plan of care as discussed with me and documented in the resident note. (Abbie Denson MD) Problem List: (1) Hyponatremia ICD Codes: E87.1 - Hypo-osmolality and hyponatremia Status: Acute Plan: Sodium of 116 on admission. Clinically with mild symptoms (headache, nausea, fatigue). No signs of confusion, seizures, respiratory depression. Has history of hyponatremia (this is the 3rd episode in 2 years triggered by medication), so may be a more of a chronic picture. Serum Osm on admission: 247 (L) Urine osm: 528 (H) Urine sodium: 54 Clinically, pt remains euvolemic with stable vital signs, moist mucous membranes , normal skin turgor, 2 second cap refill, no edema Thyroid disease and adrenal insufficiency etiology ruled out w/ normal TSH and AM cortisol Meets criteria for SIADH. Discontinued duloxetine, as this medication can contribute/cause SIADH Goal is to raise sodium by 4-6meq/24h to reduce risk for osmotic demyelination and no more than 8meq in a 24 hour period -Continue to monitor BMPs -Continue fluid restriction for now of < 800 cc/day -Monitor for neurological signs or worsening clinically (2) HTN (hypertension) ICD Codes: I10 - Essential (primary) hypertension Status: Chronic Plan: -Continue home meds: amlodipine, losartan -Clonidine PRN -Monitor vitals q4h (3) Diabetes ICD Codes: E11.9 - Type 2 diabetes mellitus without complications Status: Chronic Plan: Hold home Metformin while inpatient -Low dose sliding scale novolog insulin -Regular accuchecks (4) Chronic pain ICD Codes: G89.29 - Other chronic pain Status: Chronic Plan: Pt with chronic joint pain. Found to have osteoporosis, but no other etiology. Pt with GI upset after taking NSAIDs Inflammatory workup initiated, negative - Continue alendronate - PO Tylenol prn pain - Physical therapy - Avoid NSAIDs for now (5) FEN Status: Acute Plan: Fluids: Currently on fluid restriction as above; fluid restriction of 800 cc/day Electrolytes: hyponatremia, plan as above; otherwise WNL Nutrition: diabetic diet DVT ppx: Heparin 5,000 units sq q12h GI ppx: Protonix 40 mg po daily (Jerod Gudino MD R2) Problem Qualifiers (1) HTN (hypertension): Qualified Codes: I10 - Essential (primary) hypertension (2) Diabetes: Qualified Codes: E11.9 - Type 2 diabetes mellitus without complications (3) Chronic pain: Qualified Codes: G89.29 - Other chronic pain Jerod Gudino MD R2 Mar 25, 2017 09:59 Abbie Denson MD Mar 26, 2017 09:21
--- NOTE | 2017-03-25 17:23 | HHI.DCPOC ---
Discharge Care Plan Diagnosis: (1) SIADH (syndrome of inappropriate ADH production) (2) Hyponatremia Goals to Promote Your Health * To prevent worsening of your condition and complications, restrict your water intake to 800ml , take your medications as directed, follow up with your doctor * To maintain your health at the optimal level, perform aerobic exercise at least 30 minutes a day, eat a mediterranean diet, follow up with your doctors Directions to Meet Your Goals Take your medications as prescribed Follow your dietary instruction Follow activity as directed Keep your appointments as scheduled Take your immunizations and boosters as scheduled If your symptoms worsen call your PCP, if no PCP go to Urgent Care Center or Emergency Room Smoking is Dangerous to Your Health. Avoid second hand smoke Call the 24-hour hour crisis hotline for domestic abuse at Yuli Oliva MD R1 Mar 25, 2017 17:23
[2017-03-26 00:10] VITALS: BP 155/75; PULSE 76; RESP 16; TEMP 97.8; O2SAT 98
[2017-03-26 04:00] VITALS: BP 156/82; PULSE 73; RESP 20; TEMP 97.7; O2SAT 99
[2017-03-26] MEDS: HEPARIN SODIUM - SQ 10,000 UNITS/ML VIAL SQ SCH (05:23)
[2017-03-26 06:21] LABS: BICARBONATE 25.6 MEQ/L (21.0-32.0); POTASSIUM 4.1 MEQ/L (3.5-5.1)
[2017-03-26 08:00] VITALS: BP 159/70; PULSE 88; RESP 20; TEMP 98.8; O2SAT 96
[2017-03-26] MEDS: LOSARTAN 50 MG TAB PO SCH (08:43)
[2017-03-26] MEDS: amLODIPine BESYLATE 5 MG TAB PO SCH (08:43)
[2017-03-26] MEDS: SODIUM CHLORIDE 0.9% FLUSH 10 ML FLUSH IV FLUSH SCH (08:43)
[2017-03-26] MEDS: DOCUSATE SODIUM 50 MG/SENNA 8.6 MG TAB PO SCH (08:43)
[2017-03-26] MEDS: ASPIRIN EC 81 MG TABEC PO SCH (08:43)
[2017-03-26] MEDS: INSULIN ASPART SUPPLEMENTAL SCALE SQ SCH (08:43)
[2017-03-26] MEDS: PANTOPRAZOLE SOD 40 MG DELAYED RELEASE TAB PO SCH (08:43)
[2017-03-26 08:51] VITALS: PULSE 89
--- NOTE | 2017-03-26 08:59 | HHI.FPPN ---
Subjective Remarks Patient states she was able to sleep and is eating, drinking, and ambulating ok. No acute complaints. BP was 150s/80s overnight. Objective Vitals Vital Signs Date Time Temp Pulse Resp B/P (MAP) Pulse Ox O2 Delivery O2 Flow Rate FiO2 03/26/17 04:00 97.7 73 20 156/82 (106) 99 03/26/17 04:00 97.7 73 20 156/82 (106) 99 03/26/17 00:10 97.8 76 16 155/75 (101) 98 Automatic Cuff 03/25/17 20:00 Room Air 03/25/17 20:00 84 03/25/17 20:00 98.3 85 20 159/75 (103) 99 03/25/17 15:21 98.3 85 20 139/63 (88) 98 03/25/17 12:13 Room Air 21 03/25/17 11:56 98.3 75 20 110/58 (75) 98 03/25/17 10:43 99 21 I/O 03/25/17 03/25/17 03/25/17 03/26/17 03/26/17 03/26/17 07:00 15:00 23:00 07:00 15:00 23:00 Intake Total 240 ml 240 ml 200 ml Output Total 400 ml Balance 240 ml 240 ml -200 ml Intake Oral 240 ml 240 ml 200 ml Output Urine Total 400 ml # Voids 3 3 Result Diagram: 03/23/17 0200 03/26/17 0527 Objective Remarks GENERAL: Awake and alert, pleasant, appears stated age, sitting in chair, appears less fatigued than prior examination SKIN: Cool and dry. Normal skin turgor. HEAD: Atraumatic. Normocephalic. EYES: EOMI. No injection or drainage. ENT: Moist mucous membranes. Uvula midline. Airway patent. NECK: Supple. Trachea midline. CARDIOVASCULAR: Regular rate and rhythm without murmurs, gallops, or rubs. RESPIRATORY: Clear to auscultation. Breath sounds equal bilaterally. No wheezes , rales, or rhonchi. ABDOMEN: Abdomen nondistended. EXTREMITIES: No lower extremity edema. NEUROLOGICAL: Awake and alert. Cranial nerves grossly intact. Motor and sensory grossly within normal limits. Normal speech (speaks in [place]iny[place]). A/P Assessment and Plan 76 y/o female with a history of diabetes, hypertension, chronic pain, and hyponatremia admitted after presenting with chronic pain/fatigue and found to have hyponatremia of 116 on admission. Work-up significant for SIADH likely secondary to medication use (duloxetine). Discharge Planning D/C today Problem List: (1) Hyponatremia ICD Codes: E87.1 - Hypo-osmolality and hyponatremia Status: Acute Plan: Sodium of 116 on admission. Clinically with mild symptoms (headache, nausea, fatigue). No signs of confusion, seizures, respiratory depression. Has history of hyponatremia (this is the 3rd episode in 2 years triggered by medication), so may be a more of a chronic picture. Serum Osm on admission: 247 (L) Urine osm: 528 (H) Urine sodium: 54 Clinically, pt remains euvolemic with stable vital signs, moist mucous membranes , normal skin turgor, 2 second cap refill, no edema Thyroid disease and adrenal insufficiency etiology ruled out w/ normal TSH and AM cortisol Meets criteria for SIADH. Discontinued duloxetine, as this medication can contribute/cause SIADH - Na of 135 this AM -Continue fluid restriction of < 800 cc/day after D/C. Will need f/u BMP in a week (2) HTN (hypertension) ICD Codes: I10 - Essential (primary) hypertension Status: Chronic Plan: -Continue home meds: amlodipine, losartan -Clonidine PRN - will likely need additional medication for BP control (3) Diabetes ICD Codes: E11.9 - Type 2 diabetes mellitus without complications Status: Chronic Plan: Hold home Metformin while inpatient -Low dose sliding scale novolog insulin -Regular accuchecks (4) Chronic pain ICD Codes: G89.29 - Other chronic pain Status: Chronic Plan: Pt with chronic joint pain. Found to have osteoporosis, but no other etiology. Pt with GI upset after taking NSAIDs Inflammatory workup initiated, negative - Continue alendronate - PO Tylenol prn pain - Physical therapy - Avoid NSAIDs or adding new medication for now (5) FEN Status: Acute Plan: Fluids: Currently on fluid restriction as above; fluid restriction of 800 cc/day Electrolytes: hyponatremia, plan as above; otherwise WNL Nutrition: diabetic diet DVT ppx: Heparin 5,000 units sq q12h GI ppx: Protonix 40 mg po daily Problem Qualifiers (1) HTN (hypertension): Qualified Codes: I10 - Essential (primary) hypertension (2) Diabetes: Qualified Codes: E11.9 - Type 2 diabetes mellitus without complications (3) Chronic pain: Qualified Codes: G89.29 - Other chronic pain Yuli Oliva MD R1 Mar 26, 2017 08:59
[2017-03-26] MEDS: ACETAMINOPHEN 325 MG TAB PO PRN (11:43)
== END 2017-03-26 11:45 | disposition home or self-care (01) | DRG 645 ==
LOC: NEPE 00:56 → NEDA 03:36 → N04B 05:23
PROVIDERS: ADMIT Family Medicine; ATTEND Family Medicine
DX: E22.2 Syndrome of inappropriate secretion of antidiuretic hormone (principal); E11.9 Type 2 diabetes mellitus without complications; I10 Essential (primary) hypertension; E87.6 Hypokalemia; G89.29 Other chronic pain; E78.00 Pure hypercholesterolemia, unspecified; Z79.84 Long term (current) use of oral hypoglycemic drugs; M81.0 Age-related osteoporosis without current pathological fracture; F32.9 Major depressive disorder, single episode, unspecified; E55.9 Vitamin D deficiency, unspecified; K57.90 Diverticulosis of intestine, part unspecified, without perforation or abscess without bleeding; T43.215A Adverse effect of selective serotonin and norepinephrine reuptake inhibitors, initial encounter
CPT/HCPCS: 70450; 80048; 80053; 81001; 82533; 82948; 83935; 84133; 84300; 84439; 84443; 85025; 93005; 96361; 96374; J1644; J1815; J2405; J7030